=== PATIENT | female | born 1985 | race Caucasian/White ===

== ENCOUNTER 2022-04-13 01:01 | Emergency (ER) | payer MEDICAID ==
[~2022-04-13] VITALS: Ht 165.1 cm; Wt 99.8 kg
--- NOTE | 2022-04-13 03:16 | NUR ---
Dr. Iverson in room for BRANDON.
[2022-04-13] MEDS ORDERED: HYDROMORPHONE 1 MG/1 ML DISP.SYRIN ONE ×2 (03:27→05:21)
[2022-04-13] MEDS ORDERED: ONDANSETRON 4 MG/2 ML VIAL ONE (03:27)
[2022-04-13 03:30] LABS: HEMATOCRIT 43.9 % (31.2-41.9); MEAN CORPUSCULAR HEMOGLOBIN 30.3 uug (24.7-32.8); MEAN CORPUSCULAR VOLUME 86.5 fL (75.5-95.3); PLATELET COUNT (AUTO) 204 K/uL (179-408)
[2022-04-13] MEDS ORDERED: IV NORMAL SALINE 1000 ML BAG IV ONE (03:30)
[2022-04-13] MEDS ORDERED: HYDROMORPHONE 1 MG/1 ML DISP.SYRIN IV ONE ×2 (03:30→05:30)
[2022-04-13] MEDS ORDERED: ONDANSETRON 4 MG/2 ML VIAL IV ONE (03:30)
--- NOTE | 2022-04-13 03:39 | NUR ---
pt steady gait pt ambulated to the bathroom to give urine sample.
[2022-04-13 03:44] LABS: ALANINE AMINOTRANSFERASE 16 U/L (14-59); ALKALINE PHOSPHATASE 69 U/L (50-136); ASPARTATE AMINOTRANSFERASE 14 U/L (15-37); BILIRUBIN,DIRECT 0.1 mg/dL (0.0-0.2); BILIRUBIN,TOTAL 0.3 mg/dL (0.2-1.0); CARBON DIOXIDE 28 mmol/L (21-32); CHLORIDE 99 mmol/L (98-107); CREATININE 1.1 mg/dL (0.6-1.3); GLUCOSE 114 mg/dL (74-106); LIPASE 133 U/L (73-393); POTASSIUM 3.8 mmol/L (3.5-5.1); UREA NITROGEN, BLOOD 9 mg/dL (7-18)
[2022-04-13 04:49] LABS: *BILIRUBIN,URIN NEGATIVE (NEGATIVE); *BLOOD, URINE NEGATIVE (NEGATIVE); *CLARITY,URINE CLEAR (CLEAR); *COLOR,URINE YELLOW (YELLOW); *KETONES,URINE NEGATIVE (NEGATIVE); *UROBILINOGEN,URINE 0.2 E.U./dl (NORMAL); LEUKOCYTE ESTERASE ,URINE NEGATIVE (NEGATIVE); NITRITE, URINE NEGATIVE (NEGATIVE); UGLUCOSE NEGATIVE (NEGATIVE)
--- NOTE | 2022-04-13 04:57 | NUR ---
pt went to cat scan.
--- NOTE | 2022-04-13 05:11 | NUR ---
pt returned from cat scan.
[2022-04-13] MEDS ORDERED: DICYCLOMINE HCL LIQ 10 MG/5 ML UDC ONE (05:21)
[2022-04-13] MEDS ORDERED: DICYCLOMINE HCL LIQ 10 MG/5 ML UDC PO ONE (05:30)
[2022-04-13] MEDS ORDERED: DICY20TA11 PO (06:08)
[2022-04-13] MEDS ORDERED: ONDA4TAB5 PO (06:08)
[2022-04-13] MEDS ORDERED: HYDR-4209 PO (06:08)
--- NOTE | 2022-04-13 06:20 | NUR ---
Patient discharged to home in stable condition. Written and verbal after care instructions given. Patient verbalizes understanding of instructions. Stressed follow up or return to ER for worsening s/s.
[2022-04-13 06:29] VITALS: BP 112/65
== END 2022-04-13 06:30 | disposition home or self-care (01) ==
LOC: ER 01:19
DX: R19.7 Diarrhea, unspecified (principal); R11.2 Nausea with vomiting, unspecified
CPT/HCPCS: 99284; 74176; 96374; 96361; 96375; 80076; 80048; 81003; 83690; 85025; 84702; 36415; 96376; J2405; J1170 ×2; J7040; A4663

== ENCOUNTER 2023-05-13 20:30 | Emergency (ER) | payer MEDICAID ==
[~2023-05-13] VITALS: Ht 165.1 cm; Wt 97.5 kg
[~2023-05-13 20:30] MED LIST: DICY20TA11 PO; HYDR-4209 PO; ONDA4TAB5 PO
[2023-05-13] MEDS ORDERED: CEFTRIAXONE 1 G VIAL ONE (20:53)
[2023-05-13] MEDS ORDERED: LIDOCAINE HCL 1% 20 ML VIAL ONE (20:53)
[2023-05-13] MEDS ORDERED: CEPH500T PO (21:00)
[2023-05-13] MEDS ORDERED: SULF1TAB48 PO (21:00)
[2023-05-13] MEDS ORDERED: CEFTRIAXONE 1 G VIAL IM ONE (21:00)
[2023-05-13 21:30] VITALS: BP 127/74; O2SAT 97
== END 2023-05-13 21:40 | disposition home or self-care (01) ==
LOC: ER 20:36
DX: L03.115 Cellulitis of right lower limb (principal); F17.210 Nicotine dependence, cigarettes, uncomplicated; Z71.6 Tobacco abuse counseling; Z90.49 Acquired absence of other specified parts of digestive tract; Z79.2 Long term (current) use of antibiotics; Z79.899 Other long term (current) drug therapy
CPT/HCPCS: 99283; 96372; J0696; J3490; A4663